=== PATIENT | male | born 1980 | race Caucasian/White ===

== ENCOUNTER → 2018-12-09 19:52 | Outpatient (CLI) | payer BC, SELFPAY ==
--- NOTE | 2018-12-09 19:55 | DI.RAD.S_ITS ---
PROCEDURE: XR KNEE RT 3V INDICATIONS: r knee pain TECHNIQUE: 3 views of the knee were acquired. COMPARISON: None. FINDINGS: Bones: No fractures or dislocations. No suspicious bony lesions. Soft tissues: No joint effusion. No suspicious soft tissue calcifications. IMPRESSION: No fracture. If the patient's pain or other symptoms persist, consider further evaluation with MRI Dictated by: Anthony Hodges M.D. on 12/09/2018 at 20:31 Approved by: Anthony Hodges M.D. on 12/09/2018 at 20:36
== END ==
PROVIDERS: Visit Provider Physician Assistant
DX: M25.561 Pain in right knee (principal)
CPT/HCPCS: 73562

== ENCOUNTER → 2018-12-17 17:56 | Outpatient (CLI) | payer BC, SELFPAY ==
--- NOTE | 2018-12-17 17:58 | DI.MRI.S_ITS ---
PROCEDURE: MR KNEE RT WO CON INDICATIONS: R knee swelling/pain TECHNIQUE: Noncontrast sagittal PD fast spin echo and T2 fast spin echo with fat saturation, sagittal 3-D FLASH with fat saturation; coronal T1 spin echo and PD fast spin echo with fat saturation, and axial PD fast spin echo with fat saturation through the knee. COMPARISON: [facility], CR, XR KNEE RT 3V, 12/09/2018, 20:00. FINDINGS: Image quality: Excellent. Menisci: Linear high T2 signal intensity traverses the posterior horn medial meniscus, demonstrating inferior articular surface extension, indicating oblique tearing. Lateral meniscus is intact. Cruciate ligaments: The anterior and posterior cruciate ligaments appear intact. Medial structures: The medial collateral ligament appears intact. Visualized portions of the pes anserinus tendons appear normal. No abnormal bursal fluid. Lateral structures: The lateral collateral ligament, long and short heads of the biceps femoris tendon appear intact. The popliteus tendon appears normal. Iliotibial band appears normal. Anterior structures: The quadriceps and patellar tendons appear intact. Patellar alignment is normal. No femoral trochlear dysplasia or ventral trochlear prominence. Mild edema in the infrapatellar fat pad. Moderate edema within the anteromedial subcutaneous fat. Bones and cartilage: No bone marrow contusions or fractures. There is mild tricompartmental periarticular osteophyte formation. Moderate diffuse articular cartilage loss overlies the weightbearing aspects of the medial femoral condyle and medial tibial plateau. Joint space: There is physiologic knee joint fluid. There is a small Villanueva's cyst. The cyst appears multiloculated at its superior aspect. Normal appearing synovial plicae are incidentally noted. IMPRESSION: 1. Posterior horn medial meniscal tear. 2. Medial compartment articular cartilage loss. 3. Small Villanueva's cyst as above. Dictated by: Mirela Sandoval M.D. on 12/18/2018 at 9:31 Approved by: Mirela Sandoval M.D. on 12/18/2018 at 9:36
== END ==
PROVIDERS: Visit Provider Hospitalist
DX: M25.561 Pain in right knee (principal); S83.241A Other tear of medial meniscus, current injury, right knee, initial encounter; M71.21 Synovial cyst of popliteal space [Baker], right knee
CPT/HCPCS: 73721

== ENCOUNTER → 2019-02-20 16:22 | Outpatient (CLI) | payer BC, SELFPAY ==
[2019-02-20 17:37] LABS: Add Manual Diff / Slide Review NO; Basophils Absolute Auto 0 /uL (0-100); Basophils Percent Auto 0.4 % (0-2); Eosinophils Absolute Auto 200 /uL (0-450); Eosinophils Percent Auto 2.1 % (2-4); Hematocrit 38.9 % (41-53); Lymphocytes Absolute Auto 3300 /uL (1100-4500); Lymphocytes Percent Auto 42.5 % (25-40); Mean Corpuscular HGB Conc 33.4 % (30-36); Mean Corpuscular Hemoglobin 29.2 PG (26-34); Mean Corpuscular Volume 87.4 fL (80-100); Monocytes Absolute Auto 500 /uL (0-900); Monocytes Percent Auto 6.8 % (3-14); Neutrophils Absolute Auto 3700 /uL (1500-7000); Neutrophils Percent Auto 48.2 % (50-75); Platelet Count 258 X10^3/uL (150-400); Red Blood Cell Count 4.45 X10^6/uL (4.5-5.9); Red Cell Distribution Width 14.3 % (11.6-14.8); White Blood Cell Count 7.7 X10^3/uL (4.5-11.0)
[2019-02-20 17:55] LABS: Erythrocyte Sedimentation Rate 12 MM/HR (0-15)
== END ==
PROVIDERS: Hospitalist; Visit Provider Nurse Practitioner Family
DX: M25.561 Pain in right knee (principal)
CPT/HCPCS: 36415; 85025; 85651

== ENCOUNTER → 2022-02-13 13:55 | Outpatient (CLI) | payer BC, SELFPAY ==
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
== END ==
PROVIDERS: PCP Family Medicine; Referring Provider Family Medicine; Visit Provider Family Medicine
DX: E11.9 Type 2 diabetes mellitus without complications (principal); Z79.84 Long term (current) use of oral hypoglycemic drugs; Z79.4 Long term (current) use of insulin; Z71.3 Dietary counseling and surveillance
CPT/HCPCS: 97802

== ENCOUNTER → 2022-03-06 15:53 | Outpatient (CLI) | payer BC, SELFPAY ==
--- NOTE | 2022-03-28 16:41 | DIAB.MNTFU ---
Follow-up Diabetes Medical Nutrition Therapy Assessment Name: Guillermo Friedman Date: 03/06/22 Time: 4-5p Dx: Type II Diabetes Guillermo presents for follow-up. States he has recently seen some elevated BG, one particular elevation on football game day of 275 mg/dL after high carb intake. Reports reduced veggie intake. Having quick meals and eating out more this week due to schedule and stress. For stress mgmnt uses podcasts, reading, breathing exercises, new sailboat, steam room. Sleep typically good, though has been waking once per night to urinate. Reduced red meat intake. Avoiding most carbs most days per diet recall. Often 0-1c carbs at meals. Anthropometrics: Wt: 221.8# last visit Physical Activity: Reports 15 mins walking 1-2 x per week (mostly due to social barriers: schedule, stress with mother of his daughter. Self-Monitoring Blood Glucose: All BG elevated. One pc reading of 174mg/dL, but likely >2 hours after meal. No dates associated with readings. Likely benefit from increae of Lantus HS. He has expressed wanting to d/c insulin. has done so in the past. Date Pre Post Pre Post Pre Post HS 201 185 210 174 190 165 156 154 208 steak and corn 185 174 2-3 hr reading : shrimp and 0.5c rice Diabetes Medications: 5mg glipizide 1000mg Metformin BID 10mg Jardiance 22u Lantus HS Pertinent Labs: 12/2021 HgA1c 9.8% cholesterol: 300 H T H Past Medical History: (Last Updated 06/30/19 @ 17:18 by AKBAR Forrest) BMI 30.0-30.9,adult Borderline systolic HTN Gout Lung nodules (01/2019) Mixed hyperlipidemia (06/2019) Nutrition Rx: Carbohydrates: Meal: 45g Snack: 15-30g Nutrition Diagnosis: - Inadequate fiber intake r/t limited whole grains, vegetables, and fruit aeb diet recall - Physical inactivity r/t stage of change preparation aeb pt report - Predicted excessive saturated fat intake r/t nutrition knowledge deficit aeb diet recall and elevated lipids Intervention: This participant was very receptive. Provided appropriate educational handouts. Discussed the following topics: Blood sugar review and trends. Plate Method, impact of macronutrients on blood sugar, meal timing, carbohydrate counting, pairing macronutrients and spreading out carbohydrates for better blood glucose management Heart health nutrition: fats, fiber, and sodium Easy veggie choices Physical activity plan and progress Created SMART goals for patient self-care and success. Goals: 30 minutes of intentional exercise 3-7 days per week- in progress Make 1/2 plate vegetables - in progress use slade to track steps- new Cont to check BG and add dates- new Follow-up: ROSIE BLANC follow-up in 3-4 weeks Mirta New RDN, [place] Certified Diabetes Care and [employer] P: [phone] Thank you for this referral
== END ==
PROVIDERS: PCP Family Medicine; Referring Provider Family Medicine; Visit Provider Family Medicine
DX: E11.9 Type 2 diabetes mellitus without complications (principal); Z79.84 Long term (current) use of oral hypoglycemic drugs; Z79.4 Long term (current) use of insulin; Z71.3 Dietary counseling and surveillance
CPT/HCPCS: 97803

== ENCOUNTER → 2022-04-03 16:01 | Outpatient (CLI) | payer BC, SELFPAY ==
--- NOTE | 2022-04-03 17:25 | DIAB.MNTFU ---
Follow-up Diabetes Medical Nutrition Therapy Assessment Name: Guillermo Friedman Date: 04/03/22 Time: 420-5p Dx: Type II Diabetes Guillermo presents for follow-up. States he is happy to see FBG improve (see SMBG below). Reports increased stress recently, but seems to be managing stress well. Trying to not let things rattle him, and has invested in some home instruments to play with daughter, ie drums, guitar and keyboard. Historically has seen higher BG with increased life stress. Reports he has been eating out more often recently due to busy schedule. This has resulted in some elevated pc BG. Overall, has been trying to manage CHO portions, avoiding large portions of protein and incorporating vegetables. Sometimes skipping lunch due to work schedule. Reports he and his daughter will be going on a [address] trip. Anticipates diet to be a challenge. Has cut out sweet tea recently. Still drinking some soda when eating out. Otherwise, focusing on increased water intake and sf beverages. Diet Recall: 8-9a: breakfast sandwich on eng muffin 12p: protein(steak or lobster) sn: nothing or handful of baked lays 5-6p: 1c protein, 1-1.5c broccoli, 1/3c corn, <1c potatoes Beverages; water, coke zero, occasional reg soda Anthropometrics: No new weights Physical Activity: 15 minutes 2 days per week resistance training, house work Self-Monitoring Blood Glucose: much improved BG. Last visit all FBG were 150-200 mg/dl. This visit most readings <150mg/dL. Some elevations after dinner r/t eating out ie lopes burrito or wings/fries/soda or pizza Date Pre Post Pre Post Pre Post HS 118 185 158 138 156 185 172 160 172 200 168 142 168 185 166 168 162 164 130 154 185 131 Diabetes Medications: 5mg glipizide 1000mg Metformin BID 10mg Jardiance 22u Lantus HS Pertinent Labs: 12/2021 HgA1c 9.8% cholesterol: 300 H T H Past Medical History: (Last Updated 06/30/19 @ 17:18 by AKBAR Forrest) BMI 30.0-30.9,adult Borderline systolic HTN Gout Lung nodules (01/2019) Mixed hyperlipidemia (06/2019) Nutrition Rx: Carbohydrates: Meal: 45g Snack: 15-30g Nutrition Diagnosis: - Inadequate fiber intake r/t limited whole grains, vegetables, and fruit aeb diet recall- in progress/improved - Physical inactivity r/t stage of change preparation aeb pt report- in progress - Predicted excessive saturated fat intake r/t nutrition knowledge deficit aeb diet recall and elevated lipids- improved/in progress Intervention: This participant was very receptive. Provided appropriate educational handouts. Discussed the following topics: Blood sugar review and trends. Impact of food intake on results. Improved results! Eating out strategies and preparing for challenges during vacation on the road snack ideas Meal planning HgA1c goal and rationale Potential for Ozempic if provider agrees, benefits of GLP1RA Impact of sugar beverages on BG Physical activity plan and progress Created SMART goals for patient self-care and success. Goals: 30 minutes of intentional exercise 3-7 days per week- in progress Make 1/2 plate vegetables - in progress use slade to track steps- new Cont to check BG and add dates- new Choose vegetables at meals on vacation- new bring road trip snacks (ie fruit, trail mix, carrots, cheese, water) - new Follow-up: ROSIE BLANC follow-up in 4-6 weeks. Seems Guillermo's blood sugars are improving with the increased activity, reduced sugar beverages, and increased water. We have scheduled to see Guillermo after his trip. Plans to see PCP soon for follow-up labs. States he cannot remember when his appt is. Due to follow-up with PCP and new labs. Mirta New, ROSIE, CDCES Certified Diabetes Care and [employer] Super[employer] P: [phone] Thank you for this referral
== END ==
PROVIDERS: PCP Family Medicine; Referring Provider Family Medicine; Visit Provider Family Medicine
DX: E11.9 Type 2 diabetes mellitus without complications (principal); Z71.3 Dietary counseling and surveillance; Z79.84 Long term (current) use of oral hypoglycemic drugs; Z79.4 Long term (current) use of insulin
CPT/HCPCS: 97803